=== PATIENT | female | born 1955 | race Asian ===

== ENCOUNTER → 2018-02-05 | Emergency (ER) | payer OTHER ==
[~2018-02-05] VITALS: Ht 157.5 cm; Wt 81.6 kg
[~2018-02-05] MED LIST: IV NS 0.9% 1,000 ML BAG IV ONE
[2018-02-05 22:23] VITALS: BP 125/64
== END | disposition home or self-care (01) ==
LOC: ER 21:41
DX: R06.02 Shortness of breath (principal); J45.909 Unspecified asthma, uncomplicated; E86.0 Dehydration; I10 Essential (primary) hypertension
CPT/HCPCS: 36415; 85378; 93005; 96360; 99285; A4606; J7030; Z7610